=== PATIENT | male | born 1935 | race Two or more races ===

== ENCOUNTER → 2018-05-01 18:19 | Outpatient (CLI) | payer MEDICARE, BC, SELFPAY ==
[2018-05-01 20:36] LABS: M R Staph aureus DNA By PCR Negative (Negative)
[2018-05-01 20:37] LABS: Probe Check PASS; Staph aureus DNA By PCR POSITIVE (Negative)
== END ==
PROVIDERS: Visit Provider Podiatrist
DX: L60.0 Ingrowing nail (principal)
CPT/HCPCS: 87070; 87077; 87186; 87205; 87640